=== PATIENT | female | born 1985 | race Caucasian/White ===

== ENCOUNTER 2021-10-09 13:11 | Emergency (ER) | payer SELFPAY ==
[2021-10-09] MEDS ORDERED: Nicotine 14 MG PATCH ONE (18:17)
== END 2021-10-09 19:28 | disposition home or self-care (01) ==
LOC: CSHERS 13:11
DX: F10.20 Alcohol dependence, uncomplicated (principal); F17.210 Nicotine dependence, cigarettes, uncomplicated; Y90.8 Blood alcohol level of 240 mg/100 ml or more
CPT/HCPCS: 80307; 99283